=== PATIENT | female | born 2000 | race Caucasian/White ===

== ENCOUNTER 2023-07-06 18:58 | Emergency (ER) | payer OTHER ==
[~2023-07-06] VITALS: Ht 165.1 cm; Wt 132.7 kg
[2023-07-06 23:03] VITALS: BP 146/98; PULSE 108; RESP 20; TEMP 98.8; O2SAT 97
[2023-07-07] MEDS ORDERED: HYDROcodone-ACET 5/325MG TAB PO ONE (03:15)
[2023-07-07] MEDS ORDERED: MUPI2OIN2 EX (03:19)
[2023-07-07] MEDS ORDERED: IBUP1TAB5 PO (03:19)
[2023-07-07] MEDS ORDERED: CYCL-611 PO (03:19)
== END 2023-07-07 04:16 | disposition home or self-care (01) ==
LOC: ER 18:58
DX: S13.8XXA Sprain of joints and ligaments of other parts of neck, initial encounter (principal); S43.491A Other sprain of right shoulder joint, initial encounter; S23.3XXA Sprain of ligaments of thoracic spine, initial encounter; S20.211A Contusion of right front wall of thorax, initial encounter; S27.69XA Other injury of pleura, initial encounter; R91.1 Solitary pulmonary nodule; Z79.1 Long term (current) use of non-steroidal anti-inflammatories (NSAID); Z79.899 Other long term (current) drug therapy; V43.62XA Car passenger injured in collision with other type car in traffic accident, initial encounter; Y93.89 Activity, other specified; Y92.89 Other specified places as the place of occurrence of the external cause; Y99.8 Other external cause status
CPT/HCPCS: 70450; 71250; 72125; 73030